=== PATIENT | male | born 1955 | race Asian ===

== ENCOUNTER 2021-06-10 10:41 | Outpatient (CLI) | payer MEDICARE, BC | END 2021-06-10 10:42 | disposition home or self-care (01) | LOC: LABBT 10:41 | PROVIDERS: ATTEND Urology | DX: Z01.818 Encounter for other preprocedural examination (principal); C61 Malignant neoplasm of prostate; N40.1 Benign prostatic hyperplasia with lower urinary tract symptoms; N13.8 Other obstructive and reflux uropathy; N32.81 Overactive bladder; G54.2 Cervical root disorders, not elsewhere classified; M54.9 Dorsalgia, unspecified; G89.29 Other chronic pain | CPT/HCPCS: 71046; 80048; 81001; 85027; 85610; 85730; 86850; 86900; 86901; 87077; 87086; U0003; U0005 ==

== ENCOUNTER 2021-09-23 15:59 | Outpatient (CLI) | payer MEDICARE, BC | END 2021-09-23 16:00 | disposition home or self-care (01) | LOC: BICRAD 15:59 | PROVIDERS: ATTEND Student in an Organized Health Care Education/Training Program | DX: M54.9 Dorsalgia, unspecified (principal); G89.29 Other chronic pain; M47.816 Spondylosis without myelopathy or radiculopathy, lumbar region; M43.16 Spondylolisthesis, lumbar region | CPT/HCPCS: 72072; 72100 ==

== ENCOUNTER 2021-10-20 09:05 | Outpatient (CLI) | payer MEDICARE, BC ==
[2021-10-20 10:36] LABS: Bilirubin Neg (Negative); Blood, Urine 10 (Negative); Clarity Clear (Clear); Glucose, Urine (Dipstick) Normal (Negative); Ketone, Urine Negative (Negative); Leukocyte 500 (Negative); Nitrite Negative (Negative); Protein, Urine (Dipstick) 15 mg/dl (Neg-Trace); Specific Gravity, Urine 1.005 (1.002-1.036); Urobilinogen Normal mg/dL (Less than 2)
[2021-10-20 10:45] LABS: Hemoglobin 14.3 g/dL (13.5-17.5); Mean Corpuscular HGB CONC 33.3 g/dL (32.0-36.0); Mean Corpuscular Hemoglobin 30.4 pg (27.0-33.0); Mean Corpuscular Volume 91.5 fl (81.2-95.1); Mean Platelet Volume 9.4 fl (7.4-10.4); Platelet Count 221 10x3/uL (150-450); RBC Distribution Width 12.3 % (11.5-14.5); White Blood Cell (WBC) Count 6.2 10x3/uL (3.5-10.5)
[2021-10-20 10:55] LABS: Prothrombin Time 10.8 sec (9.5-12.1)
[2021-10-20 10:57] LABS: ALT (SGPT) 25 U/L (8-55); AST (SGOT) 24 U/L (5-34); Albumin 4.4 g/dL (3.4-4.8); Alkaline Phosphatase 43 U/L (40-110); Anion Gap 14 mmol/L (10-20); BUN (Urea Nitrogen) 11 mg/dL (8.4-25.7); Bilirubin, Total 0.8 mg/dL (0.2-1.2); Calc. Creatinine Clearance 0 mL/min (70-130); Calcium 8.9 mg/dL (7.8-10.44); Carbon Dioxide 23 mmol/L (23-31); Chloride 105 mmol/L (98-107); Globulin 3.1 g/dL (2.4-3.5); Glucose 111 mg/dL (80-115); Potassium 4.1 mmol/L (3.5-5.1); Protein, Total 7.5 g/dL (5.8-8.1); Sodium 138 mmol/L (136-145)
[2021-10-20 11:06] LABS: Bacteria/HPF 1+ HPF (None Seen); RBC/HPF 0-3 HPF (0-3); Squamous Epithelial 0-3 HPF (0-3)
[2021-10-20 19:53] LABS: SARS-CoV-2 PCR by NAA Not Detected (NotDetected)
== END 2021-10-20 09:06 | disposition home or self-care (01) ==
LOC: LABBT 09:05
PROVIDERS: ATTEND Urology
DX: Z01.818 Encounter for other preprocedural examination (principal); Z20.822 Contact with and (suspected) exposure to COVID-19
CPT/HCPCS: 71046; 80053; 81001; 85027; 85610; 85730; 86850; 86900; 86901; 86920; 87077; 87086; 93005; U0003; U0005; 87186; 93010

== ENCOUNTER 2022-01-12 09:00 | Inpatient (IN) | payer MEDICARE, BC ==
[2022-01-12 11:23] LABS: Bilirubin Neg (Negative); Blood, Urine 25 (Negative); Clarity Slightly Cloudy (Clear); Glucose, Urine (Dipstick) Normal (Negative); Ketone, Urine Negative (Negative); Leukocyte 500 (Negative); Nitrite Positive (Negative); Protein, Urine (Dipstick) Negative (Neg-Trace); Urobilinogen Normal mg/dL (Less than 2)
[2022-01-12 11:32] LABS: Mean Corpuscular HGB CONC 33.3 g/dL (32.0-36.0); Mean Corpuscular Hemoglobin 30.5 pg (27.0-33.0); Mean Corpuscular Volume 91.7 fl (81.2-95.1); Mean Platelet Volume 9.6 fl (7.4-10.4); Platelet Count 228 10x3/uL (150-450); RBC Distribution Width 12.6 % (11.5-14.5); Red Blood Cell (RBC) Count 4.59 10x6/uL (4.32-5.72); White Blood Cell (WBC) Count 7.2 10x3/uL (3.5-10.5)
[2022-01-12 11:48] LABS: ALT (SGPT) 24 U/L (8-55); AST (SGOT) 23 U/L (5-34); Albumin 4.3 g/dL (3.4-4.8); Alkaline Phosphatase 44 U/L (40-110); Anion Gap 13 mmol/L (10-20); BUN (Urea Nitrogen) 16 mg/dL (8.4-25.7); Bilirubin, Total 1.1 mg/dL (0.2-1.2); Calc. Creatinine Clearance 0 mL/min (70-130); Calcium 8.8 mg/dL (7.8-10.44); Carbon Dioxide 25 mmol/L (23-31); Chloride 104 mmol/L (98-107); Glucose 114 mg/dL (80-115); Protein, Total 7.3 g/dL (5.8-8.1); Sodium 138 mmol/L (136-145)
[2022-01-12 11:49] LABS: PTT 29.6 sec (22.0-33.0); Prothrombin Time 10.7 sec (9.5-12.1)
[2022-01-12 12:06] LABS: Bacteria/HPF 3+ HPF (None Seen); Squamous Epithelial 0-3 HPF (0-3)
[2022-01-12 20:38] LABS: SARS-CoV-2 PCR by NAA Not Detected (NotDetected)
[2022-01-15] MEDS ORDERED: Gentamicin 80 MG/2 ML VIAL ONE (06:19)
[2022-01-15] MEDS ORDERED: cefOXitin Sodium 1 GM in Sodium Chloride 0.9% 100 ML IVPB SCH (06:30)
[2022-01-15] MEDS ORDERED: B & O ONE (06:49)
[2022-01-15] MEDS ORDERED: Bupivacaine 0.25% 10 ML VIAL ONE (06:49)
[2022-01-15] MEDS ORDERED: Xylocaine 1% w/ Epi 1:100K 10 ML VIAL ONE (06:50)
[2022-01-15] MEDS ORDERED: Lidocaine 1% PF 5 ML VIAL ONE ×2 (07:05→07:45)
[2022-01-15] MEDS ORDERED: Midazolam HCl 2 mg/2 ml Vial ONE (07:05)
[2022-01-15] MEDS ORDERED: Fentanyl 100 MCG/2 ML VIAL ONE ×4 (07:05→12:56)
[2022-01-15] MEDS ORDERED: Gentamicin Sulfate 80 MG in Premix Bag 1 BAG IVPB SCH (07:15)
[2022-01-15] MEDS ORDERED: SUGAMMADEX SODIUM 200 MG/2 ML VIAL ONE (07:19)
[2022-01-15] MEDS ORDERED: Vecuronium 10 MG VIAL ONE (07:45)
[2022-01-15] MEDS ORDERED: Bupivacaine HCl 0.5%/Epinephrine 1:200,000/PF 30 ml Vial ONE (07:45)
[2022-01-15] MEDS ORDERED: Dexamethasone 20 MG/5 ML VIAL ONE (07:45)
[2022-01-15] MEDS ORDERED: Ondansetron PF 4 MG/2 ML Vial ONE (07:45)
[2022-01-15] MEDS ORDERED: PROPOFOL 200 MG/20 ML VIAL ONE (07:45)
[2022-01-15] MEDS ORDERED: Ketorolac Tromethamine 30 MG/ML VIAL ONE (07:45)
[2022-01-15] MEDS ORDERED: Rocuronium Bromide 10 MG/ML (10ML VIAL) ONE (07:45)
[2022-01-15] MEDS ORDERED: Meperidine HCl/PF 25 MG/ML VIAL SLOW IVP PRN ×2 (08:31→12:08)
[2022-01-15] MEDS ORDERED: Promethazine HCl 25 MG/ML VIAL IM PRN ×2 (08:31→12:08)
[2022-01-15] MEDS ORDERED: Promethazine HCl 25 MG/ML VIAL IVPB PRN ×2 (08:31→12:08)
[2022-01-15] MEDS ORDERED: Ondansetron HCl/PF 4 MG/2 ML Vial IVP PRN ×2 (08:31→12:08)
[2022-01-15] MEDS ORDERED: Bupivacaine 0.5% 10 ML VIAL ONE (08:33)
[2022-01-15] MEDS ORDERED: diphenhydrAMINE 25 MG CAP PO PRN (13:43)
[2022-01-15] MEDS ORDERED: Ondansetron PF 4 MG/2 ML Vial IVP PRN (13:43)
[2022-01-15] MEDS ORDERED: hydrALAZINE 20 MG/ML VIAL SLOW IVP PRN (13:43)
[2022-01-15] MEDS ORDERED: oxyCODONE 5 MG TAB PO PRN ×2 (13:43)
[2022-01-15] MEDS ORDERED: Mag-Al 1200 mg/1200 mg/30 ML UDCUP PO PRN (13:43)
[2022-01-15] MEDS ORDERED: Hyoscyamine Sulfate SL 0.125 mg Tablet SL PRN (13:43)
[2022-01-15] MEDS ORDERED: Fentanyl 100 MCG/2 ML VIAL SLOW IVP PRN (13:43)
[2022-01-15] MEDS ORDERED: Sodium Chloride 0.9% 1,000 ML IV SCH (13:45)
[2022-01-15 14:38] LABS: Hemoglobin 13.2 g/dL (14.0-18.0); Mean Corpuscular HGB CONC 31.6 g/dL (32.0-36.0); Mean Corpuscular Hemoglobin 30.7 pg (27.0-31.0); Mean Corpuscular Volume 97.2 fL (78.0-98.0); Mean Platelet Volume 6.5 fL (7.4-10.4); Platelet Count 223 thou/uL (130-400); RBC Distribution Width 11.9 % (11.5-14.5); Red Blood Cell (RBC) Count 4.29 mill/uL (4.70-6.10)
[2022-01-15 14:54] LABS: Anion Gap 12 mmol/L (10-20); BUN (Urea Nitrogen) 12 mg/dL (8.4-25.7); Calc. Creatinine Clearance 101 mL/min (70-130); Calcium 8.5 mg/dL (7.8-10.44); Carbon Dioxide 24 mmol/L (23-31); Chloride 106 mmol/L (98-107); Glucose 163 mg/dL (80-115); Potassium 4.3 mmol/L (3.5-5.1); Sodium 138 mmol/L (136-145)
[2022-01-15] MEDS: cefOXitin 1.5 GM, Admixture Fee 1 EACH in Sodium Chloride 0.9% 100 ML IVPB SCH ×2 (14:55→22:29)
[2022-01-15] MEDS: Acetaminophen 500 MG TAB PO SCH ×2 (15:15→20:58)
[2022-01-15] MEDS: traMADol HCl 50 MG TAB PO SCH ×2 (15:15→20:58)
[2022-01-15 15:36] VITALS: BMI 26.7
[2022-01-15] MEDS: Ketorolac Tromethamine 30 MG/ML VIAL IVP SCH (18:30)
[2022-01-15] MEDS: Gabapentin 100 MG CAP PO SCH (20:57)
[2022-01-15] MEDS: Docusate 100 MG CAP PO SCH (20:58)
[2022-01-15] MEDS: Famotidine 20 MG TAB PO SCH (20:58)
[2022-01-15] MEDS: Trospium 20 MG TAB PO SCH (20:58)
[2022-01-15] MEDS: Baclofen 10 MG TAB PO SCH (20:58)
[2022-01-15] MEDS ORDERED: Simvastatin 10 MG TAB PO SCH (21:00)
[2022-01-16] MEDS: Ketorolac Tromethamine 30 MG/ML VIAL IVP SCH ×4 (00:14→18:08)
[2022-01-16] MEDS: traMADol HCl 50 MG TAB PO SCH ×3 (04:03→15:45)
[2022-01-16] MEDS: Acetaminophen 500 MG TAB PO SCH ×3 (04:03→15:46)
[2022-01-16 05:16] LABS: #Lymphocytes 0.8 thou/uL (1.20-3.40); #Monocytes 1.1 thou/uL (0.11-0.59); #Neutrophils 8.4 thou/uL (1.40-6.50); %Basophils 0.1 % (0.0-1.0); %Eosinophils 0.1 % (0.0-10.0); %Monocytes 10.3 % (0.0-10.0); %Neutrophils 81.5 % (42.0-75.0); Hemoglobin 11.8 g/dL (14.0-18.0); Mean Corpuscular Hemoglobin 31.3 pg (27.0-31.0); Mean Corpuscular Volume 97.8 fL (78.0-98.0); Mean Platelet Volume 6.7 fL (7.4-10.4); Platelet Count 201 thou/uL (130-400); RBC Distribution Width 11.9 % (11.5-14.5); Red Blood Cell (RBC) Count 3.77 mill/uL (4.70-6.10); White Blood Cell (WBC) Count 10.3 thou/uL (4.8-10.8)
[2022-01-16 05:47] LABS: Anion Gap 10 mmol/L (10-20); BUN (Urea Nitrogen) 10 mg/dL (8.4-25.7); Calc. Creatinine Clearance 106 mL/min (70-130); Calcium 7.9 mg/dL (7.8-10.44); Carbon Dioxide 23 mmol/L (23-31); Chloride 106 mmol/L (98-107); Glucose 120 mg/dL (80-115); Potassium 3.6 mmol/L (3.5-5.1); Sodium 135 mmol/L (136-145)
[2022-01-16] MEDS: cefOXitin 1.5 GM, Admixture Fee 1 EACH in Sodium Chloride 0.9% 100 ML IVPB SCH (07:47)
[2022-01-16] MEDS: Baclofen 10 MG TAB PO SCH (08:39)
[2022-01-16] MEDS: Gabapentin 100 MG CAP PO SCH (08:39)
[2022-01-16] MEDS: Docusate 100 MG CAP PO SCH (08:39)
[2022-01-16] MEDS: Famotidine 20 MG TAB PO SCH (08:39)
[2022-01-16] MEDS: Trospium 20 MG TAB PO SCH (08:40)
[2022-01-16 16:04] VITALS: BP 112/71; TEMP 97.8
== END 2022-01-16 18:24 | disposition home or self-care (01) | DRG 708 ==
LOC: SURG A 01-15 05:41 → EDSTATUS 01-15 09:00 → SURG A 01-15 13:54
PROVIDERS: ADMIT Urology; ATTEND Urology
PROC: 0VT04ZZ Resection of Prostate, Percutaneous Endoscopic Approach (ICD-10-PCS; principal; 2022-01-15)
PROC: 07TC4ZZ Resection of Pelvis Lymphatic, Percutaneous Endoscopic Approach (ICD-10-PCS; 2022-01-15)
PROC: 8E0W4CZ Robotic Assisted Procedure of Trunk Region, Percutaneous Endoscopic Approach (ICD-10-PCS; 2022-01-15)
PROC: 3E0T3BZ Introduction of Anesthetic Agent into Peripheral Nerves and Plexi, Percutaneous Approach (ICD-10-PCS; 2022-01-15)
DX: C61 Malignant neoplasm of prostate (principal); Z20.822 Contact with and (suspected) exposure to COVID-19; M19.90 Unspecified osteoarthritis, unspecified site; G89.29 Other chronic pain; I10 Essential (primary) hypertension; G47.33 Obstructive sleep apnea (adult) (pediatric); Z87.442 Personal history of urinary calculi; Z79.899 Other long term (current) drug therapy
CPT/HCPCS: 36415; 80048; 80053; 81001; 85025; 85027; 85610; 85730; 86850; 86900; 86901; 87077; 87086; 87186; 88305; 88309; C1713; C1776; J0694; J1100; J1580; J1885; J2250; J2405; J2704; J3010; J3490; J7050; S0020; U0003; U0005

== ENCOUNTER 2022-06-17 13:15 | Inpatient (IN) | payer MEDICARE, BC ==
[2022-06-17] MEDS ORDERED: Iopamidol-370 76% 500 ML 1 ML ONE (14:12)
[2022-06-17 14:15] LABS: #Eosinphils 0.2 thou/uL (0.0-0.7); #Lymphocytes 1.4 thou/uL (1.20-3.40); #Monocytes 0.5 thou/uL (0.11-0.59); #Neutrophils 4.4 thou/uL (1.40-6.50); %Basophils 0.4 % (0.0-1.0); %Eosinophils 2.6 % (0.0-10.0); %Lymphocytes 21.7 % (21.0-51.0); %Monocytes 7.8 % (0.0-10.0); %Neutrophils 67.6 % (42.0-75.0); Hemoglobin 13.7 g/dL (14.0-18.0); Mean Corpuscular HGB CONC 34.6 g/dL (32.0-36.0); Mean Corpuscular Hemoglobin 32.4 pg (27.0-31.0); Mean Corpuscular Volume 93.5 fL (78.0-98.0); Mean Platelet Volume 7.5 fL (7.4-10.4); Platelet Count 207 thou/uL (130-400); RBC Distribution Width 12.1 % (11.5-14.5); Red Blood Cell (RBC) Count 4.24 mill/uL (4.70-6.10); White Blood Cell (WBC) Count 6.6 thou/uL (4.8-10.8)
[2022-06-17 14:36] LABS: ALT (SGPT) 23 U/L (8-55); AST (SGOT) 21 U/L (5-34); Albumin 3.9 g/dL (3.4-4.8); Alkaline Phosphatase 45 U/L (40-110); Anion Gap 17 mmol/L (10-20); BUN (Urea Nitrogen) 12 mg/dL (8.4-25.7); Bilirubin, Total 1.1 mg/dL (0.2-1.2); Calc. Creatinine Clearance 0 mL/min (70-130); Calcium 8.5 mg/dL (7.8-10.44); Carbon Dioxide 23 mmol/L (23-31); Chloride 104 mmol/L (98-107); Estimated GFR 98; Globulin 2.7 g/dL (2.4-3.5); Glucose 110 mg/dL (80-115); Potassium 4.1 mmol/L (3.5-5.1); Protein, Total 6.6 g/dL (5.8-8.1); Sodium 140 mmol/L (136-145)
[2022-06-17] MEDS ORDERED: Tenecteplase 50 MG - STEMI KIT ONE (14:41)
[2022-06-17 15:34] LABS: PTT 30.2 sec (22.9-36.1); Prothrombin Time 13.5 sec (12.0-14.7)
[2022-06-17] MEDS ORDERED: Acetaminophen 325 MG TAB PO PRN (16:28)
[2022-06-17] MEDS ORDERED: hydrALAZINE 20 MG/ML VIAL SLOW IVP PRN (16:28)
[2022-06-17] MEDS ORDERED: Labetalol HCl 100 MG/20 ML VIAL SLOW IVP PRN (16:28)
[2022-06-17 16:36] LABS: Bilirubin Negative (Negative); Blood, Urine Negative (Negative); Clarity Clear (Clear); Glucose, Urine (Dipstick) Normal (Negative); Ketone, Urine 10 mg/dL (Negative); Leukocyte Negative Leu/uL (Negative); Nitrite Negative (Negative); Protein, Urine (Dipstick) Negative (Neg-Trace); Urobilinogen Normal mg/dL (Less than 2); pH, Urine 7.5 (5.0-9.0)
[2022-06-17 17:29] LABS: SARS-CoV-2 NAA Rapid Test Not Detected (NotDetected)
[2022-06-17 17:53] VITALS: BMI 27.1
[2022-06-17] MEDS: [UNRECOGNIZED DRUG - REMARK] FS SCH (19:28)
[2022-06-17] MEDS: Famotidine 20 MG TAB PO SCH (20:38)
[2022-06-18] MEDS: Famotidine 20 MG TAB PO SCH ×2 (08:07→22:05)
[2022-06-18 15:10] LABS: #Basophils 0.1 thou/uL (0.0-0.2); #Eosinphils 0.3 thou/uL (0.0-0.7); #Lymphocytes 1.6 thou/uL (1.20-3.40); #Monocytes 0.8 thou/uL (0.11-0.59); #Neutrophils 3.6 thou/uL (1.40-6.50); %Basophils 0.8 % (0.0-1.0); %Lymphocytes 25.3 % (21.0-51.0); %Monocytes 12.3 % (0.0-10.0); %Neutrophils 57.5 % (42.0-75.0); Hemoglobin 13.3 g/dL (14.0-18.0); Mean Corpuscular HGB CONC 33.3 g/dL (32.0-36.0); Mean Corpuscular Hemoglobin 31.5 pg (27.0-31.0); Mean Corpuscular Volume 94.6 fL (78.0-98.0); Mean Platelet Volume 7.7 fL (7.4-10.4); Platelet Count 195 thou/uL (130-400); RBC Distribution Width 12.3 % (11.5-14.5); Red Blood Cell (RBC) Count 4.22 mill/uL (4.70-6.10); White Blood Cell (WBC) Count 6.2 thou/uL (4.8-10.8)
[2022-06-18 15:16] LABS: Hemoglobin A1c 6.2 % (4.0-6.0)
[2022-06-18] MEDS: [UNRECOGNIZED DRUG - REMARK] FS SCH (16:54)
[2022-06-18] MEDS ORDERED: Atorvastatin Calcium 40 MG TAB PO SCH (21:00)
[2022-06-18] MEDS ORDERED: Gabapentin 100 MG CAP PO SCH (21:00)
[2022-06-18] MEDS ORDERED: Atorvastatin Calcium 20 MG TAB PO SCH (21:00)
[2022-06-18] MEDS ORDERED: Baclofen 10 MG TAB PO PRN (21:33)
[2022-06-18] MEDS ORDERED: Pregabalin 50 MG CAP PO SCH (21:45)
[2022-06-18] MEDS: Trospium 20 MG TAB PO SCH (22:05)
[2022-06-19 03:51] LABS: #Eosinphils 0.2 thou/uL (0.0-0.7); #Lymphocytes 1.6 thou/uL (1.20-3.40); #Monocytes 0.6 thou/uL (0.11-0.59); %Basophils 0.3 % (0.0-1.0); %Eosinophils 3.2 % (0.0-10.0); %Lymphocytes 24.7 % (21.0-51.0); %Monocytes 8.8 % (0.0-10.0); Hemoglobin 13.8 g/dL (14.0-18.0); Mean Corpuscular HGB CONC 34.1 g/dL (32.0-36.0); Mean Corpuscular Hemoglobin 32.3 pg (27.0-31.0); Mean Corpuscular Volume 94.9 fL (78.0-98.0); Platelet Count 206 thou/uL (130-400); RBC Distribution Width 12.2 % (11.5-14.5); Red Blood Cell (RBC) Count 4.27 mill/uL (4.70-6.10); White Blood Cell (WBC) Count 6.3 thou/uL (4.8-10.8)
[2022-06-19 04:05] LABS: Anion Gap 14 mmol/L (10-20); BUN (Urea Nitrogen) 17 mg/dL (8.4-25.7); Calc. Creatinine Clearance 105 mL/min (70-130); Calcium 8.5 mg/dL (7.8-10.44); Carbon Dioxide 24 mmol/L (23-31); Cardiac Risk 3.8 (Less than 4.5); Chloride 104 mmol/L (98-107); Cholesterol 163 mg/dl (< 200 Desired); Estimated GFR 99; Glucose 133 mg/dL (80-115); HDL Cholesterol 43 mg/dL (>60 Neg Risk); LDL Cholesterol, Calculated 99 mg/dL; Magnesium 1.8 mg/dL (1.6-2.6); Potassium 3.8 mmol/L (3.5-5.1); Sodium 138 mmol/L (136-145); Triglycerides 106 mg/dL (Less than 150)
[2022-06-19] MEDS ORDERED: Pregabalin 50 MG CAP PO SCH (09:00)
[2022-06-19] MEDS: Trospium 20 MG TAB PO SCH (09:14)
[2022-06-19] MEDS ORDERED: Aspirin 81 mg Enteric Coated Tablet PO SCH (13:00)
[2022-06-19 14:06] VITALS: TEMP 97.8
[2022-06-19 14:54] VITALS: BP 135/93
[2022-06-19] MEDS ORDERED: Atorvastatin Calcium 40 MG TAB PO SCH (21:00)
[2022-06-20] MEDS ORDERED: Aspirin 81 mg Enteric Coated Tablet PO SCH (09:00)
== END 2022-06-19 18:09 | disposition home or self-care (01) | DRG 63 ==
LOC: ERS 13:15 → CCU 15:24
PROVIDERS: ADMIT Internal Medicine; ATTEND Family Medicine
DX: I63.541 Cerebral infarction due to unspecified occlusion or stenosis of right cerebellar artery (principal); E78.5 Hyperlipidemia, unspecified; G89.29 Other chronic pain; M54.9 Dorsalgia, unspecified; G47.33 Obstructive sleep apnea (adult) (pediatric); R73.03 Prediabetes; Z79.899 Other long term (current) drug therapy; Z98.890 Other specified postprocedural states; Z90.79 Acquired absence of other genital organ(s); Z85.46 Personal history of malignant neoplasm of prostate; Z87.891 Personal history of nicotine dependence; Z82.49 Family history of ischemic heart disease and other diseases of the circulatory system
CPT/HCPCS: 36415; 36416; 70450; 70496; 70498; 70551; 80048; 80053; 80061; 81003; 83036; 83735; 84443; 84484; 85025; 85610; 85730; 93005; 93306; 96374; J3101; Q9967; U0002

== ENCOUNTER 2023-10-19 08:09 | Outpatient (CLI) | payer OTHER | END 2023-10-19 08:10 | disposition home or self-care (01) | LOC: BICULT 08:09 | PROVIDERS: ATTEND Family Medicine | DX: G90.4 Autonomic dysreflexia (principal); I77.89 Other specified disorders of arteries and arterioles | CPT/HCPCS: 76770; 76775 ==

== ENCOUNTER 2024-07-05 12:00 | Outpatient (CLI) | payer MEDICARE, BC | END 2024-07-05 12:01 | disposition home or self-care (01) | LOC: PET 12:00 | PROVIDERS: ATTEND Radiology Radiation Oncology | DX: C61 Malignant neoplasm of prostate (principal) | CPT/HCPCS: 78815; A9552; A9595 ==

== ENCOUNTER 2024-08-25 09:03 | Outpatient (CLI) | payer MEDICARE, BC | END 2024-08-25 09:04 | disposition home or self-care (01) | LOC: BICMAMMO 09:03 | PROVIDERS: ATTEND Internal Medicine | DX: M85.89 Other specified disorders of bone density and structure, multiple sites (principal); Z79.818 Long term (current) use of other agents affecting estrogen receptors and estrogen levels; M81.0 Age-related osteoporosis without current pathological fracture | CPT/HCPCS: 77080 ==

== ENCOUNTER 2025-06-20 23:42 | Emergency (ER) | payer MEDICARE, BC ==
[2025-06-21 01:42] LABS: #Basophils 0.03 10x3/uL (0.0-0.2); #Eosinophils 0.07 10x3/uL (0.0-0.7); #Monocytes 0.85 10x3/uL (0.11-0.59); #Neutrophils 8.37 10x3/uL (1.40-6.50); %Basophils 0.3 % (0.0-1.0); %Eosinophils 0.7 % (0.0-10.0); %Lymphocytes 4.0 % (21.0-51.0); %Monocytes 8.7 % (0.0-10.0); %Neutrophils 85.9 % (42.0-75.0); Hematocrit 37.3 % (42.0-52.0); Hemoglobin 12.1 g/dL (14.0-18.0); Mean Corpuscular Hemoglobin 30.6 pg (27.0-31.0); Mean Corpuscular Volume 94.4 fL (78.0-98.0); Platelet Count 198 10x3/uL (130-400); Red Blood Cell (RBC) Count 3.95 mill/uL (4.70-6.10); White Blood Cell (WBC) Count 9.75 10x3/uL (4.8-10.8)
[2025-06-21 01:58] LABS: ALT (SGPT) 25 U/L (Less than 45); AST (SGOT) 25 U/L (11-34); Albumin 3.9 g/dL (3.1-4.5); Alkaline Phosphatase 35 U/L (40-110); Anion Gap 13 mmol/L (10-20); BUN (Urea Nitrogen) 29 mg/dL (8.4-25.7); Bilirubin, Total 0.6 mg/dL (0.3-1.2); Calc. Creatinine Clearance 0 mL/min (70-130); Calcium 9.1 mg/dL (7.8-10.44); Carbon Dioxide 25 mmol/L (23-31); Chloride 102 mmol/L (98-107); Globulin 3.2 g/dL (2.4-3.5); Glucose 182 mg/dL (80-115); Lipase 19 U/L (8-78); Potassium 4.0 mmol/L (3.5-5.1); Sodium 136 mmol/L (136-145)
[2025-06-21] MEDS ORDERED: Ketorolac Tromethamine 30 MG (1 mL) VIAL ONE (02:14)
[2025-06-21] MEDS ORDERED: Ondansetron PF 4 MG/2 ML Vial ONE (02:14)
== END 2025-06-21 04:24 | disposition home or self-care (01) ==
LOC: ERS 23:42
DX: N13.2 Hydronephrosis with renal and ureteral calculous obstruction (principal); Q44.6 Cystic disease of liver; M47.896 Other spondylosis, lumbar region; Z86.73 Personal history of transient ischemic attack (TIA), and cerebral infarction without residual deficits; Z55.6 Problems related to health literacy
CPT/HCPCS: 36415; 51798; 72131; 74176; 80053; 83690; 85025; 86141; 96372; 99283; J1885; J2405; Q0162

== ENCOUNTER 2025-07-09 11:54 | Outpatient (CLI) | payer MEDICARE, BC ==
[2025-07-09 13:32] LABS: #Basophils 0.05 10x3/uL (0.0-0.2); #Eosinophils 0.28 10x3/uL (0.0-0.7); #Monocytes 0.70 10x3/uL (0.11-0.59); #Neutrophils 3.75 10x3/uL (1.40-6.50); %Basophils 0.9 % (0.0-1.0); %Eosinophils 5.2 % (0.0-10.0); %Lymphocytes 10.1 % (21.0-51.0); %Monocytes 13.1 % (0.0-10.0); %Neutrophils 70.1 % (42.0-75.0); Hematocrit 37.9 % (42.0-52.0); Hemoglobin 12.1 g/dL (14.0-18.0); Mean Corpuscular Hemoglobin 30.4 pg (27.0-31.0); Mean Corpuscular Volume 95.2 fL (78.0-98.0); Platelet Count 197 10x3/uL (130-400); Red Blood Cell (RBC) Count 3.98 mill/uL (4.70-6.10); White Blood Cell (WBC) Count 5.35 10x3/uL (4.8-10.8)
[2025-07-09 13:45] LABS: INR-International Normal Ratio 0.9; Prothrombin Time 12.6 sec (12.0-14.7)
[2025-07-09 13:48] LABS: PTT 35.9 sec (22.9-36.1)
[2025-07-09 14:13] LABS: Anion Gap 14 mmol/L (10-20); BUN (Urea Nitrogen) 16 mg/dL (8.4-25.7); Calc. Creatinine Clearance 0 mL/min (70-130); Calcium 9.3 mg/dL (7.8-10.44); Carbon Dioxide 26 mmol/L (23-31); Chloride 101 mmol/L (98-107); Glucose 107 mg/dL (80-115); Potassium 4.1 mmol/L (3.5-5.1); Sodium 137 mmol/L (136-145)
[2025-07-09 14:20] LABS: Bacteria/HPF None Seen HPF (None Seen); Glucose, Urine (Dipstick) Normal (Negative); Leukocyte 25 Leu/uL (Negative); Protein, Urine (Dipstick) Negative (Neg-Trace); RBC/HPF 0-3 HPF (0-3); Specific Gravity, Urine 1.014 (1.002-1.036)
== END 2025-07-09 11:55 | disposition home or self-care (01) ==
LOC: LABBT 11:54
PROVIDERS: ATTEND Urology
DX: Z01.818 Encounter for other preprocedural examination (principal); C61 Malignant neoplasm of prostate; N40.1 Benign prostatic hyperplasia with lower urinary tract symptoms; N13.8 Other obstructive and reflux uropathy; N32.81 Overactive bladder; G54.2 Cervical root disorders, not elsewhere classified; N39.3 Stress incontinence (female) (male)
CPT/HCPCS: 80048; 81001; 85025; 85610; 85730; 87086; 93005; 93010

== ENCOUNTER 2025-07-17 09:09 | Outpatient (CLI) | payer MEDICARE, BC | END 2025-07-17 09:10 | disposition home or self-care (01) | LOC: BICCT 09:09 | PROVIDERS: ATTEND Urology | DX: N20.2 Calculus of kidney with calculus of ureter (principal) | CPT/HCPCS: 74176 ==

== ENCOUNTER 2025-07-20 06:00 | Day surgery (SDC) | payer MEDICARE, BC ==
[2025-07-09 12:42] VITALS: BMI 27.2
[2025-07-20] MEDS ORDERED: Ondansetron PF 4 MG/2 ML Vial ONE (07:14)
[2025-07-20] MEDS ORDERED: PROPOFOL 20 ML ONE (07:14)
[2025-07-20] MEDS ORDERED: fentaNYL PF 100 MCG/2 ML SYRINGE ONE (07:14)
[2025-07-20] MEDS ORDERED: Lidocaine 1% PF 5 ML VIAL ONE (07:14)
[2025-07-20] MEDS ORDERED: LevoFLOXacin D5W 500 mg (100 mL) BAG ONE (07:31)
[2025-07-20] MEDS ORDERED: PHENYLEPHRINE-NS 100 MCG/ML 10 ML SYRINGE ONE (09:46)
[2025-07-20] MEDS ORDERED: Ketorolac Tromethamine 30 MG (1 mL) VIAL ONE (10:12)
[2025-07-20] MEDS ORDERED: Oxybutynin 5 MG TAB ONE (10:29)
== END 2025-07-20 12:59 | disposition home or self-care (01) ==
LOC: SDC 06:00
PROVIDERS: ATTEND Urology
PROC: 0TC68ZZ Extirpation of Matter from Right Ureter, Via Natural or Artificial Opening Endoscopic (ICD-10-PCS; principal; 2025-07-20)
PROC: 0T768DZ Dilation of Right Ureter with Intraluminal Device, Via Natural or Artificial Opening Endoscopic (ICD-10-PCS; 2025-07-20)
DX: N20.0 Calculus of kidney (principal); N39.3 Stress incontinence (female) (male); N52.1 Erectile dysfunction due to diseases classified elsewhere; N40.1 Benign prostatic hyperplasia with lower urinary tract symptoms; N13.8 Other obstructive and reflux uropathy; N32.81 Overactive bladder; I10 Essential (primary) hypertension; E78.5 Hyperlipidemia, unspecified; G47.33 Obstructive sleep apnea (adult) (pediatric); G54.2 Cervical root disorders, not elsewhere classified; G89.29 Other chronic pain; C61 Malignant neoplasm of prostate; M54.9 Dorsalgia, unspecified; Z87.891 Personal history of nicotine dependence; Z98.890 Other specified postprocedural states; Z88.8 Allergy status to other drugs, medicaments and biological substances; Z79.899 Other long term (current) drug therapy
CPT/HCPCS: 52356; 82365; C1758; C1769 ×2; C2617; J1100; J1885; J1956; J2250; J2704; 88300